=== PATIENT | female | born 1980 | race African-American/Black ===

== ENCOUNTER 2021-07-06 21:49 | Emergency (ER) | payer OTHER ==
[~2021-07-06] VITALS: Ht 157.5 cm; Wt 65.0 kg
[~2021-07-06 21:49] MED LIST: DOCU-109 PO; IBUP-1060 PO; OXYC1TAB15 PO
[2021-07-06] MEDS ORDERED: IV NORMAL SALINE 1000ML BAG 1,000 ML IV ONE (23:45)
[2021-07-06] MEDS ORDERED: ZIPRASIDONE IM 20 MG VIAL. IM ONE (23:45)
--- NOTE | 2021-07-07 01:01 | PHYS DOC ---
Past Medical History Past Medical History: No Pertinent History Past Medical History Limited secondary to altered mental status/psychosis (GLORIA YOUNG DO) Past Surgical History: No Surgical History Past Surgical History Limited secondary to altered mental status/psychosis (GLORIA YOUNG DO) Smoking Status: Never Smoker Alcohol Use: Occasionally Drug Use: None Social History Limited secondary to altered mental status/psychosis (GLORIA YOUNG DO) General Adult EDM: Chief Complaint: PSYCH EVALUATION HPI: HPI: Patient is a 41-year-old female who presents in the ED for psychiatric evalu ation with her . The patient's is currently present and states that for the last week his has had almost no sleep, and has not been eating regularly, as well as had a substantial amount of energy and many flight of ideas and has has been acting bizarrely. Patient's states that she has never had any other mental health issues, has had no problems with depression, anxiety, psychotic issues, or other problems in the psychiatric realm. There is no current family history of any other psychiatric illness that he is aware of in her family. When questioned the patient states that she goes by the name "Goddess". Patient goes between stating that she is a "baby" and her more normal appearance. Patient has sudden shifts between these two states, and is overall uncooperative with psychiatric history taking. Patient's does state that today that she told him and his daughters that she wanted to "kill him", and that was the reason for and bringing her to the ED today. Patient's does not believe that she actually wants to do so, or did any other aggressive actions that made him worry. Denies known trauma. Denies fever or chills. History of present illness limited secondary to altered mental status/psychosis (GLORIA YOUNG DO) Review of Systems: Review of Systems: Review of systems limited secondary to altered mental status/psychosis (GLORIA YOUNG DO) Heart Score: C/O Chest Pain: N/A (GLORIA YOUNG DO) Current Medications: Current Medications Medications (Trade) Dose Ordered Sig/Mihir Start Time Stop Time Status Last Admin Dose Admin Sodium Chloride 1,000 ml @ 1,000 mls/hr 1X ONCE 07/06/21 23:45 07/07/21 00:44 Ziprasidone (Geodon Im) 20 mg 1X ONCE 07/06/21 23:45 07/06/21 23:46 DC 07/07/21 00:29 20 MG (GLORIA YOUNG DO) Allergies: Allergies: Allergies Coded Allergies Type Severity Reaction Last Updated Verified No Known Drug Allergies 07/10/15 No (GLORIA YOUNG DO) Physical Exam: PE: Constitutional: Well developed, well nourished, agitated HENT: Normocephalic, atraumatic, patient does have alopecia on her scalp. Eyes: PERRL, EOMI, conjunctiva normal, no discharge Neck: Normal range of motion, no tenderness, supple Lungs & Thorax: No respiratory distress, equal chest rise and fall Abdomen: Soft, no tenderness Skin: Warm, dry, no erythema, no rash Back: No tenderness, no CVA tenderness Extremities: No tenderness, ROM intact, no edema Neurologic: Alert and oriented X 3, normal motor function, normal sensory function, no focal deficits noted Psychologic: Patient goes between having delusions of being a baby, positive history of insomnia, possible grandiosity suspected, endorses increased energy and flight of ideas. (GLORIA YOUNG DO) Current Patient Data: Vital Signs: Vital Signs Date Time Temp Pulse Resp B/P (MAP) Pulse Ox O2 Delivery O2 Flow Rate FiO2 07/06/21 23:03 98.2 119 18 159/74 (102) 100 Room Air 98.2 (GLORIA YOUNG DO) EKG: EK 07/07/21 - EKG - Normal Sinus rhythm, at a 78 HR, QRS - 76ms, QT/QTc - 384/441ms (GLORIA YOUNG DO) Radiology/Procedures: Radiology/Procedures: PROCEDURE: PORTABLE CHEST 1V AP chest x-ray HISTORY: Altered mental status. FINDINGS: Exaggerated thoracic scoliosis. Heart size normal. Mediastinal silhouette is normal. No pneumothorax, pulmonary opacities or pleural effusions. IMPRESSION: No acute process. Electronically signed by: Jad Mayer MD (07/07/2021 2:21 AM) [facility]: CT HEAD WO CONTRAST CT head without contrast PQRS statement: CT scans at this facility use dose reduction including either automated exposure control, iterative reconstructions, and /or weight based radiation dosing via mA and kV modification when appropriate to reduce radiation dose to as low as reasonably achievable. HISTORY: Altered mental status. FINDINGS: No intracranial hemorrhage, mass, hydrocephalus, extra-axial fluid collections or infarction. Orbits, mastoids and bones are unremarkable. IMPRESSION: No acute abnormality. Electronically signed by: Jad Mayer MD (07/07/2021 4:26 AM) [facility] (GLORIA YOUNG DO) Course & Med Decision Making: Course & Med Decision Making Pertinent Labs and Imaging studies reviewed. (See chart for details) Patient is a 41-year-old female who was brought into the ED by her after significant change in mental status and possible homicidal ideation towards her . states this is never occurred before and this is lasted for about a week, and that the patient has no other history of mental health issues, or in her family. Due to the patient's unwillingness to cooperate, and her current mental state we have initiated giving IM Geodon. The patient did require once the patient is more cooperative we are going to get urine sample, EKG. due to the patient's current mental status as well as the 's insistence that he does not feel the patient is able to go home and and be safe it is best to go ahead and admit for psychiatric observation and stabilization. Labs obtained and posted to chart. Hypokalemia addressed. Chest x-ray clear. CT head without acute finding. Discussed with Dr. Teague who is program control analyst for Dr. Jones (PCP) who does not feel that patient requires medical admission at this time. Requests PAT consultation. 0630- Sign out given to Dr. Contreras for further evaluation and final disposition. (GLORIA YOUNG DO) Course & Med Decision Making Patient was evaluated by PAT team. They did agree that she had some psychotic features, but did not think that she was a danger to herself. Repeatedly denied SI, HI, or thoughts of harming anyone else. She has been more organized this morning than she was on initial presentation, potentially from Geodon administration. The patient is not willing to accept an inpatient admission, and the PAT team does not feel that she would meet requirements for involuntary admission. Her was contacted, and safety plan with the patient and the PAT team. They are given outpatient resources to have an evaluation of this new onset psychosis. (ADRIANNA CONTRERAS MD) Dragon Disclaimer: Dragon Disclaimer: This electronic medical record was generated, in whole or in part, using a voice recognition dictation system. (GLORIA YOUNG DO) Departure Departure Impression: Primary Impression: Psychosis Qualified Codes: F29 - Unspecified psychosis not due to a substance or known physiological condition Additional Impression: Hypokalemia Disposition: 01 HOME / SELF CARE / HOMELESS Condition: STABLE Referrals: JOSEPH JONES MD (PCP) Additional Instructions: Please see the instructions provided by the psychiatric assessment team. Please seek your outpatient resources to get started on treatment. If you decide that you want inpatient treatment please call [facility] or return to the emergency department for reevaluation. If you have feelings of wanting to hurt yourself or others please return to the emergency department immediately. GLORIA YOUNG DO Jul 07, 2021 01:01 ADRIANNA CONTRERAS MD Jul 07, 2021 15:01
[2021-07-07 01:43] LABS: BASO # 0.3 x10^3/uL (0.0-0.2); BASO % 3 % (0-3); EOS % 0 % (0-3); HEMATOCRIT 29.4 % (36.0-47.0); HEMOGLOBIN 9.5 g/dL (12.0-15.5); LYMPH # 2.6 x10^3/uL (1.0-4.8); LYMPH % 31 % (24-48); MEAN CORPUSCULAR HEMOGLOBIN 26 pg (25-35); MEAN CORPUSCULAR HGB CONC 32 g/dL (31-37); MEAN CORPUSCULAR VOLUME 79 fL (79-100); MONO # 1.1 x10^3/uL (0.0-1.1); MONO % 14 % (0-9); NEUT # 4.2 x10^3/uL (1.8-7.7); NEUT % 51 % (31-73); PLATELET COUNT 346 x10^3/uL (140-400); RED BLOOD COUNT 3.73 x10^6/uL (3.50-5.40); RED CELL DISTRIBUTION WIDTH 16.7 % (11.5-14.5); WHITE BLOOD COUNT 8.2 x10^3/uL (4.0-11.0)
[2021-07-07 01:55] LABS: PREG TEST PT QUAL NEGATIVE (NEG)
[2021-07-07 02:04] LABS: ALBUMIN 3.2 g/dL (3.4-5.0); ALBUMIN/GLOBULIN RATIO 0.7 (1.0-1.7); CALCIUM 8.4 mg/dL (8.5-10.1); CREATININE 0.7 mg/dL (0.6-1.0); GFR 112.7; MAGNESIUM 2.2 mg/dL (1.8-2.4); TOTAL BILIRUBIN 0.3 mg/dL (0.2-1.0); TOTAL PROTEIN 7.5 g/dL (6.4-8.2)
[2021-07-07 02:13] LABS: POTASSIUM 2.9 mmol/L (3.5-5.1)
--- NOTE | 2021-07-07 02:24 | RAD ---
AP chest x-ray HISTORY: Altered mental status. FINDINGS: Exaggerated thoracic scoliosis. Heart size normal. Mediastinal silhouette is normal. No pne umothorax, pulmonary opacities or pleural effusions. IMPRESSION: No acute process. Electronically signed by: Jad Mayer MD (07/07/2021 2:21 AM) [facility]
--- NOTE | 2021-07-07 02:52 | EKG ---
[facility] [address] [place] [address] Test Date: 2021-07-07 Test Time: 01:29:22 Pat Name: SABAS RUIZ Department: Room: Gender: F [employer]kerage Office Manager: [id number] : 1980 Requested By: GLORIA YOUNG Order Number: [id number] Reading MD: Stanford Serrano Measurements Intervals [place] Rate: 78 P: 90 MO: 176 QRS: 91 QRSD: 76 T: 76 QT: 384 QTc: 441 Interpretive Statements SINUS RHYTHM RIGHTWARD AXIS QRS(T) CONTOUR ABNORMALITY CONSISTENT WITH HIGH LATERAL INFARCT PROBABLY OLD ABNORMAL ECG RI6.02 No previous ECG available for comparison Electronically Signed On 07-08-2021 10:16:18 [employer]IST by Stanford Serrano
[2021-07-07 04:16] LABS: BILIRUBIN,URINE NEGATIVE (NEG); CLARITY,URINE CLEAR; COLOR,URINE YELLOW; NITRITE,URINE NEGATIVE (NEG); PH,URINE 8.5 (<5.0-8.0); PROTEIN,URINE NEGATIVE (NEG-TRACE); UROBILINOGEN,URINE 0.2 mg/dL (0.2 mg/dL)
[2021-07-07 04:22] LABS: BARBITURATES NEG (NEG); BENZODIAZEPINES NEG (NEG); CANNABINOIDS NEG (NEG); COCAINE NEG (NEG); METHADONE NEG (NEG); OPIATES NEG (NEG); PHENCYCLIDINE NEG (NEG)
[2021-07-07 04:23] LABS: AMPHETAMINE/METHAMPHETAMINE NEG (NEG)
[2021-07-07 04:25] LABS: BACTERIA,URINE FEW /HPF (0-FEW); RBC,URINE 0 /HPF (0-2)
--- NOTE | 2021-07-07 04:28 | RAD ---
CT head without contrast PQRS statement: CT scans at this facility use dose reduction including either automated exposure cont rol, iterative reconstructions, and /or weight based radiation dosing via mA and kV modification when appropriate to reduce radiation dose to as low as reasonably achievable. HISTORY: Altered mental status. FINDINGS: No intracranial hemorrhage, mass, hydrocephalus, extra-axial fluid collections or infarctio n. Orbits, mastoids and bones are unremarkable. IMPRESSION: No acute abnormality. Electronically signed by: Jad Mayer MD (07/07/2021 4:26 AM) [facility]
[2021-07-07] MEDS ORDERED: POTASSIUM CHLORIDE 20 MEQ TABLET.ER. PO ONE (05:00)
[2021-07-07 05:10] LABS: ACETAMIN < 2 mcg/ml (10-30); SALIC 2.8 mg/dL (2.8-20.0)
[2021-07-07 14:59] VITALS: BP 127/62
--- NOTE | 2021-07-09 15:03 | NUR ---
IP: Attempted to contact pt concerning covid results, no answer, left a voicemail to return the call.
== END 2021-07-07 15:16 | disposition home or self-care (01) ==
LOC: ER 21:49
DX: F29 Unspecified psychosis not due to a substance or known physiological condition (principal); E87.6 Hypokalemia; Z20.822 Contact with and (suspected) exposure to COVID-19
CPT/HCPCS: 36415; 70450; 71045; 80053; 80307; 80329; 81001; 82553; 83605; 83735; 84484; 84703; 85025; 87426; 93005; 96372; 96374; 96376; 99285; G0480; J2060; J3486; J7030; U0003; U0005